=== PATIENT | male | born 1955 | race Caucasian/White ===

== ENCOUNTER → 2024-08-11 | Day surgery (SDC) | payer MEDICARE, MEDICAID ==
[~2024-08-11] VITALS: Ht 142.2 cm; Wt 80.3 kg
[~2024-08-11] MED LIST: ACETYLCHOLINE CHLORIDE INTRAOCULAR SOLUTION 1:100 ELECTROLYTE DILUENT IO ONE; AMLO5TAB88 PO; BALANCED SALT IRRIG SOLN COMB1 500ML OP ONE; FENTANYL CITRATE/PF 50MCG/ML 2ML VIAL ONE; FERR325T6 PO; FINA5TAB11 PO; GABA-529 PO; HYALURONATE SODIUM 10MG/ML 0.55ML SYRINGE IO ONE; HYDROMORPHONE HCL/PF 1MG/ML INJ IV PRN; INSNPH SUBCUT; INSU100I28 SQ; LABETALOL 5MG/ML 4ML INJ IV PRN; LIDOCAINE HCL 1% 10 MG/ML 10ML VIAL ONE; MEPERIDINE HCL/PF 25MG/ML CPJ IV PRN; METO25TA6 PO; MIDAZOLAM HCL 2 MG/2 ML VIAL ONE; MULT-1116 PO; ONDANSETRON HCL 4MG/2ML INJ IV PRN; OXCA150T29 PO; PANT40SU PO; PHENYLEPHRINE 2.5% OPHTH 15 DROP/ML BOTTLE LEFTEYE SCH; QUET200T PO; TOBRAMYCIN/DEXAMETHASONE OPTH DROPS 2.5ML ONE; TRAZ-252 PO; TROPICAMIDE 1% OPHTH DROPS 15ML LEFTEYE SCH
== END | disposition home or self-care (01) ==
LOC: OR 08:27
PROVIDERS: ATTEND Ophthalmology
DX: Z45.2 Encounter for adjustment and management of vascular access device (principal); E11.36 Type 2 diabetes mellitus with diabetic cataract; H25.89 Other age-related cataract; E11.51 Type 2 diabetes mellitus with diabetic peripheral angiopathy without gangrene; I25.10 Atherosclerotic heart disease of native coronary artery without angina pectoris; I12.9 Hypertensive chronic kidney disease with stage 1 through stage 4 chronic kidney disease, or unspecified chronic kidney disease; E11.22 Type 2 diabetes mellitus with diabetic chronic kidney disease; N18.9 Chronic kidney disease, unspecified; F32.A Depression, unspecified; J44.9 Chronic obstructive pulmonary disease, unspecified; I48.91 Unspecified atrial fibrillation; M19.90 Unspecified osteoarthritis, unspecified site; Z88.0 Allergy status to penicillin; Z95.0 Presence of cardiac pacemaker; Z79.4 Long term (current) use of insulin; Z79.899 Other long term (current) drug therapy; Z86.2 Personal history of diseases of the blood and blood-forming organs and certain disorders involving the immune mechanism; Z98.890 Other specified postprocedural states
CPT/HCPCS: 66984; 82962; 36573; V2632; J3010; J3490 ×4; J2250; C1893; C1725; C1751